=== PATIENT | male | born 1955 | race Hispanic/Latino ===

== ENCOUNTER 2019-01-18 17:04 | Inpatient (IN) | payer MEDICAID ==
[~2019-01-18] VITALS: Ht 177.8 cm; Wt 113.5 kg
[2019-01-18] MEDS ORDERED: METOPROLOL TARTRATE 1 MG/ML 5ML VIAL IV ONE (18:19)
[2019-01-18 18:32] LABS: BASOPHILS % (AUTO) 1.4 % (0.0-5.0); EOSINOPHILS % (AUTO) 4.4 % (0.0-8.0); HEMATOCRIT 40.7 % (42-54); LYMPHOCYTES % (AUTO) 28.6 % (21.0-51.0); MEAN CORPUSCULAR HEMOGLOBIN 33.8 pg (27.0-33.0); MEAN CORPUSCULAR HGB CONC 33.8 g/dL (32.0-36.0); MEAN CORPUSCULAR VOLUME 99.8 fL (79-99); MONOCYTES % (AUTO) 12.7 % (3.0-13.0); NEUTROPHILS % (AUTO) 52.9 % (40.0-77.0); PLATELET COUNT (AUTO) 218 K/uL (130-400); RED BLOOD CELL COUNT(AUTO) 4.08 MIL/uL (4.50-6.20); RED CELL DISTRIBUTION WIDTH 15.3 % (11.0-15.5)
[2019-01-18 18:39] LABS: APPEARANCE,URINE Clear (CLEAR); BILIRUBIN,URINE Negative (NEGATIVE); COLOR,URINE Dark Yellow (YELLOW); GLUCOSE, URINE (UA) Negative (NEGATIVE); KETONES,URINE Negative (NEGATIVE); LEUKOCYTE ESTERASE ,URINE Trace (NEGATIVE); NITRATE,URINE Negative (NEGATIVE); OCCULT BLOOD,URINE Negative (NEGATIVE); PH,URINE 5.5 (5.0-8.0); PROTEIN,URINE POS 1+ mg/dL (NEGATIVE)
[2019-01-18 18:45] LABS: POTASSIUM 3.2 mmol/L (3.5-5.1)
[2019-01-18 18:46] LABS: INR 0.98 (0.85-1.15); PARTIAL THROMBOPLASTIN TIME 35.4 SEC (26.3-35.5); PROTHROMBIN TIME 10.3 SEC (9.6-11.6)
[2019-01-18 18:49] LABS: ALBUMIN 3.3 g/dL (3.5-5.0); BILIRUBIN,TOTAL 1.3 mg/dL (0.2-1.0); TOTAL PROTEIN, SERUM 6.7 g/dL (6.0-8.3)
[2019-01-18 18:53] LABS: BACTERIA,URINE Rare /HPF (None Seen); RBC,URINE None Seen /HPF (0-1); SQUAMOUS EPITHELIAL CELL,UR 0-2 /HPF (0-2); WBC,URINE 0-1 /HPF (0-1)
[2019-01-18] MEDS ORDERED: ASPIRIN 325 MG TABLET ONE (20:03)
[2019-01-18] MEDS ORDERED: NITROGLYCERIN 1GM/1 INCH PACKET TD ONE (20:03)
[2019-01-18] MEDS ORDERED: POTASSIUM CHLORIDE 20MEQ/100ML 100 ML IV PRN (22:00)
[2019-01-18] MEDS ORDERED: MAGNESIUM 2GM PREMIX 50ML 50 ML IV PRN (22:00)
[2019-01-18] MEDS ORDERED: POTASSIUM CHLORIDE 10% ELIXIR 20 MEQ/15 ML UDCUP PO PRN (22:00)
[2019-01-18] MEDS ORDERED: NITROGLYCERIN 0.4 MG SL TAB SL PRN (22:00)
[2019-01-18] MEDS ORDERED: ACETAMINOPHEN 325 MG TAB PO PRN (22:00)
[2019-01-18] MEDS: SODIUM CHLORIDE 0.9% 1000ML 1,000 ML IV SCH (22:00)
[2019-01-18] MEDS ORDERED: HYDROCODONE/ACETAMINOPHEN 5/325 MG TAB PO PRN (22:00)
[2019-01-18] MEDS ORDERED: LIDOCAINE HCL-MPF 1% 2ML VIAL IVP PRN (22:00)
[2019-01-18] MEDS ORDERED: ONDANSETRON HCL 4 MG/2 ML VIAL IV PRN (22:00)
[2019-01-19] MEDS ORDERED: POTASSIUM CHLORIDE 20 MEQ ERTAB PO ONE (00:07)
[2019-01-19] MEDS ORDERED: HYDROCODONE/ACETAMINOPHEN 5/325 MG TAB ONE (00:08)
[2019-01-19 02:32] VITALS: BP 161/109
[2019-01-19 02:52] LABS: TROPONIN I 0.75 ng/mL (0.00-0.06)
[2019-01-19] MEDS ORDERED: SODIUM CHLORIDE 0.9% 1000ML 1,000 ML IV ONE (02:54)
[2019-01-19 05:52] LABS: BASOPHILS % (AUTO) 1.5 % (0.0-5.0); EOSINOPHILS % (AUTO) 4.9 % (0.0-8.0); HEMATOCRIT 36.7 % (42-54); LYMPHOCYTES % (AUTO) 39.5 % (21.0-51.0); MEAN CORPUSCULAR HEMOGLOBIN 34.4 pg (27.0-33.0); MEAN CORPUSCULAR HGB CONC 34.4 g/dL (32.0-36.0); MEAN CORPUSCULAR VOLUME 99.9 fL (79-99); MONOCYTES % (AUTO) 13.9 % (3.0-13.0); NEUTROPHILS % (AUTO) 40.2 % (40.0-77.0); NUCLEATED RED BLOOD CELLS 0.1 % (0.0-0.19); PLATELET COUNT (AUTO) 194 K/uL (130-400); RED BLOOD CELL COUNT(AUTO) 3.67 MIL/uL (4.50-6.20); RED CELL DISTRIBUTION WIDTH 15.2 % (11.0-15.5); WHITE BLOOD COUNT (AUTO) 8.3 K/uL (4.8-10.8)
[2019-01-19 06:21] LABS: BILIRUBIN,TOTAL 1.6 mg/dL (0.2-1.0); CREATININE 0.9 mg/dL (0.5-1.5); MAGNESIUM 1.8 mg/dL (1.80-2.40); POTASSIUM 3.6 mmol/L (3.5-5.1); TOTAL PROTEIN, SERUM 6.2 g/dL (6.0-8.3)
[2019-01-19 06:24] LABS: TROPONIN I 0.72 ng/mL (0.00-0.06)
[2019-01-19 08:00] VITALS: BP 159/105
[2019-01-19] MEDS: ENOXAPARIN SODIUM 30 MG/0.3 ML SQ SCH (08:16)
[2019-01-19] MEDS: FAMOTIDINE 20MG TAB 20 MG TAB PO SCH ×2 (09:00→20:04)
[2019-01-19] MEDS ORDERED: ONDANSETRON HCL MDV 20ML 2 MG/ML VIAL IVP PRN (09:15)
[2019-01-19] MEDS ORDERED: HYDRALAZINE HCL 20 MG/ML VIAL IV PRN (09:15)
[2019-01-19] MEDS: SODIUM CHLORIDE 0.9% 1000ML 1,000 ML IV SCH ×2 (09:23→23:57)
[2019-01-19] MEDS: MORPHINE SULFATE 2 MG/ML 1ML SYG IVP PRN ×2 (09:26→20:13)
[2019-01-19] MEDS ORDERED: APIX2.5T PO (09:30)
[2019-01-19] MEDS ORDERED: TAMS-1 PO (09:30)
[2019-01-19] MEDS: CEFAZOLIN SODIUM 1 GM VIAL IVP SCH (10:15)
[2019-01-19] MEDS ORDERED: ATOR10 PO (10:40)
[2019-01-19] MEDS ORDERED: LISI1TAB11 PO (10:40)
[2019-01-19] MEDS ORDERED: CARV6.2579 PO (10:40)
[2019-01-19 11:00] VITALS: BP 175/94
[2019-01-19] MEDS ORDERED: CARVEDILOL 6.25 MG TABLET PO ONE (13:13)
--- NOTE | 2019-01-19 13:49 | NUR ---
HX DRUG USE Pt is under PD custody. Police office at bedside. Pt return to PD custody at nm
--- NOTE | 2019-01-19 14:13 | NUR ---
DR. CASILLAS RETURNED CALL AND NOTIFIED HIM OF CONSULT FOR SURGICAL CARDIAC CLEARANCE NEEDED. 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 INFORMED HIM WE WERE INFORMED BY HIS OFFICE IN A.M. THE SAME HOWEVER, WHEN WE CALLED BACK FOR [employer]AGE [employer] EQUIPMENT MECHANIC , OFFICE THEN SAID DR. 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 DR. CASILLAS SAID OK HE WOULD COME TO SEE BECAUSE IT WAS HIS PATIENT. WILL CONTINUE TO MONITOR.
[2019-01-19 16:00] VITALS: BP 153/93
[2019-01-19] MEDS: ACETAMINOPHEN 325 MG TAB PO PRN ×2 (16:16→22:15)
[2019-01-19 19:50] VITALS: BP 168/94
[2019-01-19] MEDS: HYDRALAZINE HCL 20 MG/ML VIAL IV PRN (20:04)
--- NOTE | 2019-01-19 20:10 | NUR ---
CALLED DR. CASILLAS AND HE SAID HE HADNT MADE IT HERE YET BUT WOULD COME. HE ASKED FOR PATIENT'S ROOM NUMBER AND INFORMED HIM WITH RM NUMBER.
[2019-01-19 23:25] VITALS: BP 158/95
[2019-01-20] VITALS (23 sets, daily range): BP systolic 124–188; BP diastolic 74–119
[2019-01-20] MEDS ORDERED: METOPROLOL TARTRATE 25 MG TAB ONE (04:04)
--- NOTE | 2019-01-20 04:06 | NUR ---
HEART RATE PATIENT WITH HEART RATE IN THE 150'S A-FIB. Ana MONTOYA NOTIFIED ORDER FOR METOPROLOL 25 MG PO GIVEN AND CARRIED OUT. WILL MONITOR PATIENT.
[2019-01-20 05:05] LABS: BASOPHILS % (AUTO) 1.2 % (0.0-5.0); EOSINOPHILS % (AUTO) 2.2 % (0.0-8.0); LYMPHOCYTES % (AUTO) 25.4 % (21.0-51.0); MEAN CORPUSCULAR HEMOGLOBIN 33.5 pg (27.0-33.0); MEAN CORPUSCULAR HGB CONC 33.6 g/dL (32.0-36.0); MEAN CORPUSCULAR VOLUME 99.9 fL (79-99); MONOCYTES % (AUTO) 11.3 % (3.0-13.0); NEUTROPHILS % (AUTO) 59.9 % (40.0-77.0); PLATELET COUNT (AUTO) 236 K/uL (130-400); RED CELL DISTRIBUTION WIDTH 15.1 % (11.0-15.5)
[2019-01-20 05:28] LABS: CREATININE 0.9 mg/dL (0.5-1.5); POTASSIUM 3.3 mmol/L (3.5-5.1)
[2019-01-20 05:39] LABS: B-TYPE NATRIURETIC PEPTIDE 582 pg/mL (0-100)
[2019-01-20] MEDS: MORPHINE SULFATE 2 MG/ML 1ML SYG IVP PRN ×2 (06:58→19:31)
[2019-01-20] MEDS: METOPROLOL TARTRATE 25 MG TAB PO SCH (07:15)
[2019-01-20] MEDS: HYDROCHLOROTHIAZIDE 25 MG TABLET PO SCH ×2 (09:00→19:04)
[2019-01-20] MEDS: CARVEDILOL 6.25 MG TABLET PO SCH (09:00)
[2019-01-20] MEDS: FAMOTIDINE 20MG TAB 20 MG TAB PO SCH ×2 (09:00→19:04)
[2019-01-20] MEDS: LISINOPRIL 20 MG TABLET PO SCH ×2 (09:00→19:04)
[2019-01-20] MEDS: ENOXAPARIN SODIUM 30 MG/0.3 ML SQ SCH (09:00)
[2019-01-20] MEDS: SODIUM CHLORIDE 0.9% 1000ML 1,000 ML IV SCH (10:01)
[2019-01-20] MEDS: CEFAZOLIN SODIUM 1 GM VIAL IVP SCH (10:15)
[2019-01-20] MEDS ORDERED: LACTATED RINGERS 1000ML 1,000 ML IV ONE (11:59)
[2019-01-20] MEDS ORDERED: LIDOCAINE HCL 2% 20ML ONE (12:15)
[2019-01-20] MEDS ORDERED: ROPIVACAINE 0.5% 5MG/ML 30ML IJ ONE (12:15)
[2019-01-20] MEDS ORDERED: MIDAZOLAM HCL 1 MG/ML 2ML VIAL ONE (12:38)
[2019-01-20] MEDS ORDERED: PROPOFOL 10 MG/ML 20ML VIAL IV ONE (12:43)
[2019-01-20] MEDS ORDERED: LABETALOL HCL 5 MG/ML 20ML VIAL IV ONE (12:55)
--- NOTE | 2019-01-20 14:01 | NUR ---
PEDRO LUIS PLAN VISITED WITH PATIENT. S/P SURGERY IN PAIN. NOT ABLE TO ANSWER QUESTIONS AT THIS TIME. ITZ WILL CONTINUE TO FOLLOW. Addendum: 01/20/19 at 1403 by FILI ROBERTO RN CM Amended: Links added.
[2019-01-20] MEDS: HYDROCODONE/ACETAMINOPHEN 5/325 MG TAB PO PRN (15:18)
[2019-01-20] MEDS: POTASSIUM CHLORIDE 20 MEQ ERTAB PO PRN ×3 (15:18→19:04)
--- NOTE | 2019-01-20 16:20 | NUR ---
RD Notification - Trigger Patient s/p surgery. Patient NPO status at time of screen. Diet advanced to Heart Healthy diet. RD to continue to monitor. LBM 01/18/19. Patient monitored labs: K3.3, Glu 120, Alb 3.0, Trop 0.72. RD to continue to monitor. Please notify RD as nutritional concerns arise. Thank you. Addendum: 01/20/19 at 1622 by [address] JAVIER CANO RD RD Amended: Links added.
[2019-01-20] MEDS: HYDRALAZINE HCL 20 MG/ML VIAL IV PRN (19:14)
[2019-01-21] MEDS: MORPHINE SULFATE 2 MG/ML 1ML SYG IVP PRN (01:25)
[2019-01-21] MEDS: SODIUM CHLORIDE 0.9% 1000ML 1,000 ML IV SCH (03:20)
[2019-01-21 04:00] VITALS: BP 165/97
[2019-01-21 04:26] LABS: BASOPHILS % (AUTO) 1.3 % (0.0-5.0); EOSINOPHILS % (AUTO) 2.9 % (0.0-8.0); LYMPHOCYTES % (AUTO) 30.4 % (21.0-51.0); MEAN CORPUSCULAR HEMOGLOBIN 34.6 pg (27.0-33.0); MEAN CORPUSCULAR HGB CONC 34.9 g/dL (32.0-36.0); MEAN CORPUSCULAR VOLUME 99.2 fL (79-99); MONOCYTES % (AUTO) 13.2 % (3.0-13.0); NEUTROPHILS % (AUTO) 52.2 % (40.0-77.0); PLATELET COUNT (AUTO) 209 K/uL (130-400); RED BLOOD CELL COUNT(AUTO) 4.33 MIL/uL (4.50-6.20); WHITE BLOOD COUNT (AUTO) 8.4 K/uL (4.8-10.8)
[2019-01-21 04:47] LABS: CREATININE 0.8 mg/dL (0.5-1.5); POTASSIUM 3.5 mmol/L (3.5-5.1)
[2019-01-21] MEDS ORDERED: TYL3 PO (06:52)
[2019-01-21] MEDS: METOPROLOL TARTRATE 25 MG TAB PO SCH (07:15)
[2019-01-21 07:30] VITALS: BP 168/93
[2019-01-21] MEDS: CEFAZOLIN SODIUM 1 GM VIAL IVP SCH (08:39)
[2019-01-21] MEDS: HYDROCHLOROTHIAZIDE 25 MG TABLET PO SCH (08:46)
[2019-01-21] MEDS: LISINOPRIL 20 MG TABLET PO SCH (08:46)
[2019-01-21] MEDS: CARVEDILOL 6.25 MG TABLET PO SCH (08:46)
[2019-01-21] MEDS: FAMOTIDINE 20MG TAB 20 MG TAB PO SCH (08:47)
[2019-01-21] MEDS: ENOXAPARIN SODIUM 30 MG/0.3 ML SQ SCH (08:47)
[2019-01-21 11:00] VITALS: BP 144/86
[2019-01-21] MEDS ORDERED: CARVEDILOL 6.25 MG TABLET PO SCH (12:15)
--- NOTE | 2019-01-21 12:20 | NUR ---
Pt has discharge orders in place if okay with ortho and cardiology, however, pt has maintained heart rate in 110-120 bpm range, occasionally up to 150's during activity. Current BP 141/86. Reported heart rate to Dr. Montez. [place]'d orders to increase coreg to 12.5 mg po bid, give extra dose of 6.25 mg now to equal 12.5mg for this morning, then continue to monitor. Pt may be discharged if no further problems. Orders entered and honored.
[2019-01-21 12:27] VITALS: BP 144/86
[2019-01-21] MEDS ORDERED: CARV12.580 PO (12:29)
[2019-01-21] MEDS: HYDROCODONE/ACETAMINOPHEN 5/325 MG TAB PO PRN (12:45)
--- NOTE | 2019-01-21 12:51 | NUR ---
DC PLAN VISITED WITH PATIENT. PATIENT LIVES WITH SON. INDEPENDENT ABLE TO PERFORM ADL'S. PATIENT HAS NO SERVICES OR DME'S. FEELS SAFE TO RETURN HOME. Addendum: 01/21/19 at 1253 by FILI ROBERTO RN CM Amended: Links added.
--- NOTE | 2019-01-21 16:00 | NUR ---
Heart rate has been high 90's low 110's since administration of extra dose of coreg. Will discharge as ordered.
--- NOTE | 2019-01-21 16:30 | NUR ---
Rec'd call [facility] Lieutenant Stapleton [facility] [place]. He stated that although pt is currently under their custody, he is being denied by the [facility] due to dx and must be released back to his home. Pt is to follow up with his adult probation officer for further instructions after discharge. Relayed this information to pt and son.
--- NOTE | 2019-01-21 16:50 | NUR ---
Discharge teaching completed in the room with pt. Emphasis on dx, s/s to monitor for, and when to seek emergency care / call 911. Emphasis on Dr. Craft's orders for activity (NWB RUE, use sling during day), cast care (inspect skin around cast daily; keep cast clean, dry, and intact; do not submerge; do not use objects to scratch beneath, etc.), and follow up care. Pt has appts set with Dr. Craft on 02/[address] Montez on 02/09. Encouraged pt to keep all apts. Written rx for coreg 12.5 bid and tylenol 3 q 12 hours prn given to pt. Discussed purpose, route, frequency, and duration of treatment, as well as side effects and adverse effects. PIV removed, tip intact. Dressed with sterile 2x2 and band aid after hemostasis. Pt wheel[facility] to [facility] by [facility] staff for transport home via private car. Accompanied by son. Pt in stable condition at time of discharge.
[2019-01-21] MEDS ORDERED: CARVEDILOL 12.5 MG TABLET PO SCH (21:00)
== END 2019-01-21 16:52 | DRG 342 ==
LOC: EEVIPCON 17:04 → EDH 17:04 → EDHIP 17:05 → 4AH 01-19 01:04
PROVIDERS: ADMIT Internal Medicine; ATTEND Internal Medicine
PROC: 0PSHXZZ Reposition Right Radius, External Approach (ICD-10-PCS; principal; 2019-01-20 12:32)
DX: S52.551A Other extraarticular fracture of lower end of right radius, initial encounter for closed fracture (principal); I48.2 Chronic atrial fibrillation; W18.30XA Fall on same level, unspecified, initial encounter; E87.6 Hypokalemia; R74.8 Abnormal levels of other serum enzymes; F17.210 Nicotine dependence, cigarettes, uncomplicated; E78.00 Pure hypercholesterolemia, unspecified; E78.5 Hyperlipidemia, unspecified; I10 Essential (primary) hypertension; F14.10 Cocaine abuse, uncomplicated; I25.10 Atherosclerotic heart disease of native coronary artery without angina pectoris; E66.9 Obesity, unspecified; Z68.35 Body mass index [BMI] 35.0-35.9, adult; Z82.49 Family history of ischemic heart disease and other diseases of the circulatory system; Z82.3 Family history of stroke; Y92.009 Unspecified place in unspecified non-institutional (private) residence as the place of occurrence of the external cause; Z83.3 Family history of diabetes mellitus; Y93.89 Activity, other specified; Y99.8 Other external cause status
CPT/HCPCS: 36415; 71045; 72100; 73110; 80048; 80053; 81001; 82550; 83735; 83874; 83880; 84484; 85025; 85610; 85730; 93005; 93306; A4218; G0378; J0360; J0690; J1650; J2250; J2704; J2795; J3490; J7030; J7120

== ENCOUNTER 2019-02-18 08:27 | Emergency (ER) | payer MEDICAID ==
[~2019-02-18 08:27] MED LIST: APIX2.5T PO; ATOR10 PO; CARV12.580 PO; LISI1TAB11 PO; TAMS-1 PO; TYL3 PO
[2019-02-18] MEDS ORDERED: METOPROLOL TARTRATE 1 MG/ML 5ML VIAL IV ONE ×2 (09:44→11:27)
[2019-02-18 09:48] LABS: BASOPHILS % (AUTO) 1.2 % (0.0-5.0); EOSINOPHILS % (AUTO) 2.1 % (0.0-8.0); HEMATOCRIT 47.3 % (42-54); LYMPHOCYTES % (AUTO) 22.2 % (21.0-51.0); MEAN CORPUSCULAR HEMOGLOBIN 33.3 pg (27.0-33.0); MEAN CORPUSCULAR HGB CONC 33.5 g/dL (32.0-36.0); MEAN CORPUSCULAR VOLUME 99.6 fL (79-99); MONOCYTES % (AUTO) 9.3 % (3.0-13.0); NEUTROPHILS % (AUTO) 65.2 % (40.0-77.0); NUCLEATED RED BLOOD CELLS 0.1 % (0.0-0.19); PLATELET COUNT (AUTO) 196 K/uL (130-400); RED BLOOD CELL COUNT(AUTO) 4.75 MIL/uL (4.50-6.20); RED CELL DISTRIBUTION WIDTH 14.9 % (11.0-15.5); WHITE BLOOD COUNT (AUTO) 8.5 K/uL (4.8-10.8)
[2019-02-18 09:56] LABS: CREATININE 1.1 mg/dL (0.5-1.5); POTASSIUM 3.2 mmol/L (3.5-5.1)
[2019-02-18 10:00] LABS: ALBUMIN 3.4 g/dL (3.5-5.0); BILIRUBIN,TOTAL 1.4 mg/dL (0.2-1.0); TOTAL PROTEIN, SERUM 7.1 g/dL (6.0-8.3)
[2019-02-18] MEDS ORDERED: POTASSIUM CHLORIDE 20 MEQ ERTAB PO ONE (11:26)
== END 2019-02-18 12:20 | disposition home or self-care (01) ==
LOC: EDH 08:27
DX: I48.91 Unspecified atrial fibrillation (principal); K43.9 Ventral hernia without obstruction or gangrene; I10 Essential (primary) hypertension; Z72.0 Tobacco use
CPT/HCPCS: 36415; 80053; 83735; 85025; 93005; 96374; 96376; 99285; J3490 ×2

== ENCOUNTER 2021-05-14 08:50 | Inpatient (IN) | payer MEDICARE ==
[~2021-05-14] VITALS: Ht 177.8 cm; Wt 113.7 kg
[~2021-05-14 08:50] MED LIST changes: +ASPI-891 PO; +DOXY100T2 PO; +FURO20TA4 PO; -LISI1TAB11 PO; +LISI1TAB51 PO
[2021-05-14 10:41] LABS: BASOPHILS % (AUTO) 0.3 % (0.0-5.0); LYMPHOCYTES % (AUTO) 18.7 % (21.0-51.0); MEAN CORPUSCULAR HEMOGLOBIN 32.4 pg (27.0-33.0); MEAN CORPUSCULAR HGB CONC 34.4 g/dL (32.0-36.0); MEAN CORPUSCULAR VOLUME 94.4 fL (79-99); MONOCYTES % (AUTO) 6.1 % (3.0-13.0); NEUTROPHILS % (AUTO) 70.3 % (40.0-77.0); NUCLEATED RED BLOOD CELLS 0.3 % (0.0-0.19); PLATELET COUNT (AUTO) 276 K/uL (130-400); RED BLOOD CELL COUNT(AUTO) 4.13 MIL/uL (4.50-6.20); RED CELL DISTRIBUTION WIDTH 15.3 % (11.0-15.5); WHITE BLOOD COUNT (AUTO) 11.6 K/uL (4.8-10.8)
[2021-05-14 10:53] LABS: POTASSIUM 3.2 mmol/L (3.5-5.1)
[2021-05-14 10:54] LABS: INR 1.06 (0.85-1.15); PROTHROMBIN TIME 11.5 SEC (9.6-11.6)
[2021-05-14 10:57] LABS: ALBUMIN 2.7 g/dL (3.5-5.0); BILIRUBIN,TOTAL 1.2 mg/dL (0.2-1.0)
[2021-05-14 10:59] LABS: APPEARANCE,URINE Clear (CLEAR); BILIRUBIN,URINE Negative (NEGATIVE); COLOR,URINE Yellow (YELLOW); GLUCOSE, URINE (UA) Negative (NEGATIVE); KETONES,URINE Negative (NEGATIVE); LEUKOCYTE ESTERASE ,URINE Small (NEGATIVE); NITRATE,URINE Negative (NEGATIVE); OCCULT BLOOD,URINE Negative (NEGATIVE); PH,URINE 7.5 (5.0-8.0); PROTEIN,URINE Negative (NEGATIVE)
[2021-05-14 11:06] LABS: BACTERIA,URINE Rare /HPF (None Seen); RBC,URINE 0-1 /HPF (0-1); SQUAMOUS EPITHELIAL CELL,UR Rare /HPF (0-2)
[2021-05-14 11:08] LABS: B-TYPE NATRIURETIC PEPTIDE 368 pg/mL (0-100)
[2021-05-14 12:31] VITALS: BP 144/84
[2021-05-14 16:45] VITALS: BP 148/84
[2021-05-14] MEDS ORDERED: AZITHROMYCIN 500MG VIAL IVPB ONE (17:30)
[2021-05-14] MEDS ORDERED: 0.9% NACL 250ML IVPB ONE (17:30)
[2021-05-14] MEDS: CEFTRIAXONE 1G VIAL IVP SCH ×2 (17:58→18:08)
[2021-05-14] MEDS ORDERED: 0.9% NACL 250ML 250 ML IV SCH (18:00)
[2021-05-14] MEDS ORDERED: AZITHROMYCIN 500MG+NS 250ML IV SCH (18:00)
[2021-05-14 18:19] LABS: ABG BASE EXCESS 4.2 mmol/L (-2.0-3.0); ABG HCO3 26.5 mmol/L (21.0-28.0); ABG PCO2 33 mmHg (35-48)
[2021-05-14 20:00] VITALS: BP 118/73
[2021-05-14] MEDS ORDERED: ACETAMINOPHEN 650 MG SUPPOSITORY RC PRN (20:30)
[2021-05-14] MEDS ORDERED: TEMAZEPAM 15 MG CAPSULE PO PRN (20:30)
[2021-05-14] MEDS ORDERED: CLONIDINE HCL 0.1 MG TABLET PO PRN ×2 (20:30)
[2021-05-14] MEDS ORDERED: LIDOCAINE HCL-MPF 1% 2ML VIAL IV PRN ×2 (20:30)
[2021-05-14] MEDS ORDERED: ACETAMINOPHEN 325 MG TAB PO PRN (20:30)
[2021-05-14] MEDS ORDERED: GLUCAGON 1MG KIT 1 MG ML IM PRN (20:30)
[2021-05-14] MEDS ORDERED: ONDANSETRON 4MG INJ IVP PRN (20:30)
[2021-05-14] MEDS ORDERED: POTASSIUM CHLORIDE 20MEQ/100ML 100 ML IV PRN ×2 (20:30)
[2021-05-14] MEDS ORDERED: DEXTROSE 50%-WATER 50 ML DISP.SYRIN IV PRN (20:30)
[2021-05-14] MEDS ORDERED: POTASSIUM CHLORIDE 10% ELIXIR 20 MEQ/15 ML UDCUP PO PRN (20:30)
[2021-05-14] MEDS ORDERED: [UNRECOGNIZED DRUG - REMARK] MISC STA (20:42)
[2021-05-14] MEDS ORDERED: IOHEXOL 350 MG/ML 100ML INFUS..BTL IV ONE (20:50)
[2021-05-14] MEDS ORDERED: SOLU-MEDROL 125MG VIAL IVP ONE (21:00)
[2021-05-14] MEDS: INSULIN HUMULIN R 100 UNIT/ML 3ML SQ SCH ×2 (21:00)
[2021-05-14 21:23] LABS: TROPONIN I 0.15 ng/mL (0.00-0.06)
[2021-05-14] MEDS: ZOSYN 3.375GM +NS 50ML IV SCH (21:58)
[2021-05-15] VITALS (7 sets, daily range): BP systolic 104–131; BP diastolic 56–90
[2021-05-15 00:01] LABS: AMPHET/METH SCREEN,URINE NEGATIVE (NEGATIVE); BARBITURATE SCREEN, URINE NEGATIVE (NEGATIVE); BENZODIAZEPINES SCREEN,URINE NEGATIVE (NEGATIVE); CANNABINOID SCREEN,URINE NEGATIVE (NEGATIVE); COCAINE SCREEN,URINE POSITIVE (NEGATIVE); OPIATE SCREEN,URINE NEGATIVE (NEGATIVE); PHENCYCLIDINE SCREEN,URINE NEGATIVE (NEGATIVE)
[2021-05-15] MEDS: ACETYLCYSTEINE 20% 200MG/ML 4ML VIAL NEB SCH ×4 (00:28→18:54)
[2021-05-15] MEDS: IPRATROPIUM/ALBUTEROL SULFATE 3 ML SOLUTION IH SCH ×4 (00:28→18:53)
[2021-05-15] MEDS: ZOSYN 3.375GM +NS 50ML IV SCH ×3 (04:30→21:59)
[2021-05-15 06:42] LABS: BASOPHILS % (AUTO) 0.1 % (0.0-5.0); HEMATOCRIT 39.2 % (42-54); LYMPHOCYTES % (AUTO) 10.5 % (21.0-51.0); MEAN CORPUSCULAR HEMOGLOBIN 32.3 pg (27.0-33.0); MEAN CORPUSCULAR HGB CONC 33.9 g/dL (32.0-36.0); MEAN CORPUSCULAR VOLUME 95.1 fL (79-99); MONOCYTES % (AUTO) 1.2 % (3.0-13.0); NEUTROPHILS % (AUTO) 87.7 % (40.0-77.0); PLATELET COUNT (AUTO) 287 K/uL (130-400); RED BLOOD CELL COUNT(AUTO) 4.12 MIL/uL (4.50-6.20); WHITE BLOOD COUNT (AUTO) 7.3 K/uL (4.8-10.8)
[2021-05-15 06:46] LABS: HEMOGLOBIN A1C 6.3 % (4.0-6.0)
[2021-05-15 06:53] LABS: INR 1.05 (0.85-1.15); PROTHROMBIN TIME 11.4 SEC (9.6-11.6)
[2021-05-15 07:13] LABS: B-TYPE NATRIURETIC PEPTIDE 307 pg/mL (0-100)
[2021-05-15] MEDS: INSULIN HUMULIN R 100 UNIT/ML 3ML SQ SCH ×7 (07:30→21:00)
[2021-05-15 07:46] LABS: CREATININE 1.1 mg/dL (0.5-1.5); MAGNESIUM 1.8 mg/dL (1.80-2.40); PHOSPHORUS 4.5 mg/dL (2.5-4.9); POTASSIUM 3.7 mmol/L (3.5-5.1); THYROID STIMULATING HORMONE 0.45 uIU/mL (0.36-3.74)
[2021-05-15] MEDS: FUROSEMIDE 40MG VIAL IV SCH (08:30)
[2021-05-15] MEDS: POLYETHYLENE GLYCOL 3350 17 GM POWD.PACK PO SCH (09:00)
[2021-05-15] MEDS: ASPIRIN 81MG CHEW TAB PO SCH (10:32)
[2021-05-15] MEDS: PANTOPRAZOLE 40 MG TAB DR PO SCH (10:32)
[2021-05-15] MEDS: SOLU-MEDROL 125MG VIAL IVP SCH ×2 (10:32→18:46)
[2021-05-15] MEDS: LEVOFLOXACIN 500 MG/D5W 100 ML IV SCH (10:32)
[2021-05-15] MEDS: ENOXAPARIN SODIUM 30 MG/0.3 ML SQ SCH (10:34)
[2021-05-15] MEDS: MORPHINE 2 MG SYG IVP PRN (10:45)
[2021-05-15] MEDS ORDERED: 0.9%NACL 50ML 50 ML IV ONE (12:49)
[2021-05-15] MEDS: FUROSEMIDE 20MG VIAL IV SCH ×2 (14:22→21:59)
[2021-05-16] VITALS (7 sets, daily range): BP systolic 110–146; BP diastolic 63–84
[2021-05-16] MEDS: ACETYLCYSTEINE 20% 200MG/ML 4ML VIAL NEB SCH ×3 (00:35→11:23)
[2021-05-16] MEDS: IPRATROPIUM/ALBUTEROL SULFATE 3 ML SOLUTION IH SCH ×4 (00:35→18:39)
[2021-05-16] MEDS: SOLU-MEDROL 125MG VIAL IVP SCH ×2 (01:33→09:39)
[2021-05-16 03:55] LABS: HEMATOCRIT 36.5 % (42-54); MEAN CORPUSCULAR HEMOGLOBIN 31.5 pg (27.0-33.0); MEAN CORPUSCULAR HGB CONC 33.4 g/dL (32.0-36.0); MEAN CORPUSCULAR VOLUME 94.3 fL (79-99); NUCLEATED RED BLOOD CELLS 0.1 % (0.0-0.19); RED BLOOD CELL COUNT(AUTO) 3.87 MIL/uL (4.50-6.20); WHITE BLOOD COUNT (AUTO) 18.8 K/uL (4.8-10.8)
[2021-05-16 04:02] LABS: CREATININE 1.7 mg/dL (0.5-1.5); MAGNESIUM 1.9 mg/dL (1.80-2.40); POTASSIUM 3.4 mmol/L (3.5-5.1)
[2021-05-16] MEDS: ZOSYN 3.375GM +NS 50ML IV SCH ×3 (06:18→23:07)
[2021-05-16] MEDS: FUROSEMIDE 20MG VIAL IV SCH (06:18)
[2021-05-16] MEDS: INSULIN HUMULIN R 100 UNIT/ML 3ML SQ SCH ×4 (06:20→21:11)
[2021-05-16] MEDS: PANTOPRAZOLE 40 MG TAB DR PO SCH (09:38)
[2021-05-16] MEDS: LEVOFLOXACIN 500 MG/D5W 100 ML IV SCH (09:38)
[2021-05-16] MEDS: ASPIRIN 81MG CHEW TAB PO SCH (09:38)
[2021-05-16] MEDS: ENOXAPARIN SODIUM 30 MG/0.3 ML SQ SCH (09:39)
[2021-05-16] MEDS: POLYETHYLENE GLYCOL 3350 17 GM POWD.PACK PO SCH (09:39)
[2021-05-16] MEDS: FUROSEMIDE 40MG VIAL IV SCH (09:41)
[2021-05-16] MEDS: KCL 20 MEQ ERTAB PO PRN ×3 (09:42→21:09)
[2021-05-16] MEDS ORDERED: SOLU-MEDROL 125MG VIAL IVP SCH (17:00)
[2021-05-16] MEDS ORDERED: ACETYLCYSTEINE 20% 200MG/ML 4ML VIAL ONE (18:30)
[2021-05-16] MEDS ORDERED: MAGNESIUM 2GM PREMIX 50ML 50 ML IV SCH (20:30)
[2021-05-16] MEDS: MORPHINE 2 MG SYG IVP PRN (23:23)
[2021-05-17] MEDS: IPRATROPIUM/ALBUTEROL SULFATE 3 ML SOLUTION IH SCH ×4 (00:27→19:00)
[2021-05-17] MEDS ORDERED: CARV3.12 PO (00:54)
[2021-05-17] MEDS ORDERED: ATOR40TA71 PO (00:54)
[2021-05-17] MEDS ORDERED: HYDR25TA PO (00:54)
[2021-05-17] MEDS ORDERED: TAMS-1 PO (00:54)
[2021-05-17] MEDS ORDERED: METF-446 PO (00:54)
[2021-05-17] MEDS ORDERED: AMIO200T6 PO (00:54)
[2021-05-17] MEDS ORDERED: AMLO-258 PO (00:54)
[2021-05-17] MEDS ORDERED: POTA-79 PO (00:54)
[2021-05-17] MEDS ORDERED: LISI20TA24 PO (00:54)
[2021-05-17 03:00] VITALS: BP 123/73
[2021-05-17 03:50] LABS: HEMATOCRIT 37.6 % (42-54); MEAN CORPUSCULAR HEMOGLOBIN 32.8 pg (27.0-33.0); MEAN CORPUSCULAR HGB CONC 33.8 g/dL (32.0-36.0); MEAN CORPUSCULAR VOLUME 97.2 fL (79-99); RED BLOOD CELL COUNT(AUTO) 3.87 MIL/uL (4.50-6.20); RED CELL DISTRIBUTION WIDTH 15.3 % (11.0-15.5); WHITE BLOOD COUNT (AUTO) 20.2 K/uL (4.8-10.8)
[2021-05-17 03:58] LABS: CREATININE 1.4 mg/dL (0.5-1.5); POTASSIUM 4.6 mmol/L (3.5-5.1)
[2021-05-17] MEDS: ZOSYN 3.375GM +NS 50ML IV SCH ×3 (05:58→21:03)
[2021-05-17] MEDS: INSULIN HUMULIN R 100 UNIT/ML 3ML SQ SCH ×4 (05:59→21:00)
[2021-05-17 07:30] VITALS: BP 149/86
[2021-05-17] MEDS ORDERED: DOXY100C5 PO (08:21)
[2021-05-17] MEDS ORDERED: PRED20TA3 PO (08:23)
[2021-05-17] MEDS: ENOXAPARIN SODIUM 30 MG/0.3 ML SQ SCH (09:00)
[2021-05-17] MEDS: AMLODIPINE 5 MG TAB PO SCH (10:03)
[2021-05-17] MEDS: CARVEDILOL 3.125 MG TABLET PO SCH ×2 (10:03→21:02)
[2021-05-17] MEDS: AMIODARONE 200 MG TABLET PO SCH ×2 (10:03→21:02)
[2021-05-17] MEDS: TAMSULOSIN HCL 0.4 MG CAP.ER.24H PO SCH ×2 (10:04→21:01)
[2021-05-17] MEDS: APIXABAN 2.5 MG TABLET PO SCH ×2 (10:04→21:01)
[2021-05-17] MEDS: PANTOPRAZOLE 40 MG TAB DR PO SCH (10:04)
[2021-05-17] MEDS: ASPIRIN 81MG CHEW TAB PO SCH (10:04)
[2021-05-17] MEDS: LISINOPRIL 20 MG TABLET PO SCH ×2 (10:04→21:02)
[2021-05-17] MEDS: KCL 20 MEQ ERTAB PO SCH ×2 (10:04→10:17)
[2021-05-17] MEDS: LEVOFLOXACIN 500 MG/D5W 100 ML IV SCH (10:05)
[2021-05-17] MEDS: FUROSEMIDE 40MG VIAL IV SCH (10:05)
[2021-05-17] MEDS: HYDROCHLOROTHIAZIDE 25 MG TABLET PO SCH (10:05)
[2021-05-17] MEDS: POLYETHYLENE GLYCOL 3350 17 GM POWD.PACK PO SCH (10:05)
[2021-05-17] MEDS: METFORMIN HCL 500 MG TAB.SR.24H PO SCH (10:06)
[2021-05-17 12:00] VITALS: BP 119/74
[2021-05-17 15:59] VITALS: BP 91/57
[2021-05-17 19:40] VITALS: BP 133/75
[2021-05-17] MEDS: ATORVASTATIN 40 MG TABLET PO SCH (21:02)
[2021-05-17] MEDS ORDERED: FURO40TA5 PO (21:35)
[2021-05-17] MEDS: FUROSEMIDE 40 MG TABLET PO SCH (23:04)
[2021-05-17] MEDS: MORPHINE 2 MG SYG IVP PRN (23:05)
[2021-05-18] VITALS: BP 118/77
[2021-05-18] MEDS: IPRATROPIUM/ALBUTEROL SULFATE 3 ML SOLUTION IH SCH ×5 (00:20→23:34)
[2021-05-18 04:00] VITALS: BP 114/63
[2021-05-18 05:08] LABS: HEMATOCRIT 36.3 % (42-54); MEAN CORPUSCULAR HEMOGLOBIN 31.6 pg (27.0-33.0); MEAN CORPUSCULAR HGB CONC 32.2 g/dL (32.0-36.0); MEAN CORPUSCULAR VOLUME 98.1 fL (79-99); RED BLOOD CELL COUNT(AUTO) 3.7 MIL/uL (4.50-6.20); RED CELL DISTRIBUTION WIDTH 15.1 % (11.0-15.5); WHITE BLOOD COUNT (AUTO) 12.3 K/uL (4.8-10.8)
[2021-05-18 05:30] LABS: ALBUMIN 2.2 g/dL (3.5-5.0); BILIRUBIN,TOTAL 0.7 mg/dL (0.2-1.0); CREATININE 1.3 mg/dL (0.5-1.5); POTASSIUM 3.5 mmol/L (3.5-5.1); TOTAL PROTEIN, SERUM 5.7 g/dL (6.0-8.3)
[2021-05-18] MEDS: ZOSYN 3.375GM +NS 50ML IV SCH ×3 (05:30→21:31)
[2021-05-18] MEDS: INSULIN HUMULIN R 100 UNIT/ML 3ML SQ SCH ×4 (05:44→20:53)
[2021-05-18 08:00] VITALS: BP 110/61
[2021-05-18] MEDS: APIXABAN 2.5 MG TABLET PO SCH ×2 (08:40→21:30)
[2021-05-18] MEDS: PANTOPRAZOLE 40 MG TAB DR PO SCH (08:42)
[2021-05-18] MEDS: AMIODARONE 200 MG TABLET PO SCH ×2 (08:42→21:31)
[2021-05-18] MEDS: HYDROCHLOROTHIAZIDE 25 MG TABLET PO SCH (08:43)
[2021-05-18] MEDS: AMLODIPINE 5 MG TAB PO SCH (08:43)
[2021-05-18] MEDS: FUROSEMIDE 40 MG TABLET PO SCH ×3 (08:44→21:00)
[2021-05-18] MEDS: TAMSULOSIN HCL 0.4 MG CAP.ER.24H PO SCH ×2 (08:45→21:30)
[2021-05-18] MEDS: KCL 20 MEQ ERTAB PO SCH ×3 (08:45→09:00)
[2021-05-18] MEDS: ASPIRIN 81MG CHEW TAB PO SCH (08:46)
[2021-05-18] MEDS: LEVOFLOXACIN 500 MG/D5W 100 ML IV SCH (08:46)
[2021-05-18] MEDS: METFORMIN HCL 500 MG TAB.SR.24H PO SCH (08:46)
[2021-05-18] MEDS: POLYETHYLENE GLYCOL 3350 17 GM POWD.PACK PO SCH (08:46)
[2021-05-18] MEDS: MORPHINE 2 MG SYG IVP PRN ×2 (08:47→18:13)
[2021-05-18] MEDS: ENOXAPARIN SODIUM 30 MG/0.3 ML SQ SCH (08:48)
[2021-05-18] MEDS: LISINOPRIL 20 MG TABLET PO SCH ×2 (09:00→21:31)
[2021-05-18] MEDS: CARVEDILOL 3.125 MG TABLET PO SCH ×2 (09:00→21:31)
[2021-05-18 10:12] LABS: CHLAMYDIA DNA N.A.AMPLIFY Negative (Negative)
[2021-05-18 12:00] VITALS: BP 109/66
[2021-05-18] MEDS ORDERED: LEVO500T89 PO (15:26)
[2021-05-18 16:00] VITALS: BP 97/52
[2021-05-18 19:51] VITALS: BP 141/73
[2021-05-18] MEDS: ATORVASTATIN 40 MG TABLET PO SCH (21:30)
[2021-05-19] VITALS (7 sets, daily range): BP systolic 97–136; BP diastolic 54–73
[2021-05-19] MEDS: ZOSYN 3.375GM +NS 50ML IV SCH ×3 (05:03→20:44)
[2021-05-19] MEDS: INSULIN HUMULIN R 100 UNIT/ML 3ML SQ SCH ×4 (06:39→20:45)
[2021-05-19] MEDS: IPRATROPIUM/ALBUTEROL SULFATE 3 ML SOLUTION IH SCH ×4 (07:05→23:14)
[2021-05-19] MEDS: LEVOFLOXACIN 500 MG/D5W 100 ML IV SCH (09:34)
[2021-05-19] MEDS: METFORMIN HCL 500 MG TAB.SR.24H PO SCH (09:34)
[2021-05-19] MEDS: CARVEDILOL 3.125 MG TABLET PO SCH ×2 (09:35→20:47)
[2021-05-19] MEDS: PREDNISONE 20 MG TABLET PO SCH (09:35)
[2021-05-19] MEDS: ASPIRIN 81MG CHEW TAB PO SCH (09:35)
[2021-05-19] MEDS: APIXABAN 2.5 MG TABLET PO SCH ×2 (09:36→20:46)
[2021-05-19] MEDS: KCL 20 MEQ ERTAB PO SCH ×2 (09:37→09:40)
[2021-05-19] MEDS: HYDROCHLOROTHIAZIDE 25 MG TABLET PO SCH (09:37)
[2021-05-19] MEDS: TAMSULOSIN HCL 0.4 MG CAP.ER.24H PO SCH ×2 (09:37→20:45)
[2021-05-19] MEDS: FUROSEMIDE 40 MG TABLET PO SCH ×2 (09:38→16:29)
[2021-05-19] MEDS: POLYETHYLENE GLYCOL 3350 17 GM POWD.PACK PO SCH (09:38)
[2021-05-19] MEDS: AMLODIPINE 5 MG TAB PO SCH (09:39)
[2021-05-19] MEDS: AMIODARONE 200 MG TABLET PO SCH (09:39)
[2021-05-19] MEDS: LISINOPRIL 20 MG TABLET PO SCH (09:40)
[2021-05-19] MEDS: PANTOPRAZOLE 40 MG TAB DR PO SCH (09:40)
[2021-05-19] MEDS: MORPHINE 2 MG SYG IVP PRN ×3 (09:41→21:15)
[2021-05-19] MEDS ORDERED: 0.9%NACL 50ML 50 ML IV ONE (13:08)
[2021-05-19] MEDS: KCL 20 MEQ ERTAB PO PRN (16:34)
[2021-05-19] MEDS: ATORVASTATIN 40 MG TABLET PO SCH (20:45)
[2021-05-20] MEDS: LISINOPRIL 20 MG TABLET PO SCH ×2 (00:01→08:53)
[2021-05-20 03:59] VITALS: BP 98/51
[2021-05-20] MEDS: ZOSYN 3.375GM +NS 50ML IV SCH ×2 (04:37→12:30)
[2021-05-20] MEDS: INSULIN HUMULIN R 100 UNIT/ML 3ML SQ SCH ×3 (06:21→16:30)
[2021-05-20] MEDS: IPRATROPIUM/ALBUTEROL SULFATE 3 ML SOLUTION IH SCH ×3 (06:34→11:08)
[2021-05-20 08:02] LABS: CREATININE 1.3 mg/dL (0.5-1.5); POTASSIUM 3.7 mmol/L (3.5-5.1)
[2021-05-20 08:19] VITALS: BP 132/77
[2021-05-20] MEDS: METFORMIN HCL 500 MG TAB.SR.24H PO SCH (08:48)
[2021-05-20] MEDS: LEVOFLOXACIN 500 MG/D5W 100 ML IV SCH (08:48)
[2021-05-20] MEDS: CARVEDILOL 3.125 MG TABLET PO SCH (08:49)
[2021-05-20] MEDS: ASPIRIN 81MG CHEW TAB PO SCH (08:49)
[2021-05-20] MEDS: PREDNISONE 20 MG TABLET PO SCH (08:49)
[2021-05-20] MEDS: KCL 20 MEQ ERTAB PO SCH ×2 (08:50→08:51)
[2021-05-20] MEDS: TAMSULOSIN HCL 0.4 MG CAP.ER.24H PO SCH (08:50)
[2021-05-20] MEDS: APIXABAN 2.5 MG TABLET PO SCH (08:50)
[2021-05-20] MEDS: HYDROCHLOROTHIAZIDE 25 MG TABLET PO SCH (08:50)
[2021-05-20] MEDS: FUROSEMIDE 40 MG TABLET PO SCH ×2 (08:51→17:00)
[2021-05-20] MEDS: POLYETHYLENE GLYCOL 3350 17 GM POWD.PACK PO SCH (08:51)
[2021-05-20] MEDS: AMLODIPINE 5 MG TAB PO SCH (08:53)
[2021-05-20] MEDS: AMIODARONE 200 MG TABLET PO SCH ×2 (08:53)
[2021-05-20] MEDS: PANTOPRAZOLE 40 MG TAB DR PO SCH (08:54)
[2021-05-20 11:52] VITALS: BP 107/72
[2021-05-20 16:06] VITALS: BP 108/59
== END 2021-05-20 18:39 | disposition home or self-care (01) | DRG 917 ==
LOC: EDH 08:50 → EDHIP 20:10 → 4CH 05-15 14:41
PROVIDERS: ADMIT Internal Medicine; ATTEND Internal Medicine
DX: T40.5X1A Poisoning by cocaine, accidental (unintentional), initial encounter (principal); J96.01 Acute respiratory failure with hypoxia; I50.23 Acute on chronic systolic (congestive) heart failure; I48.20 Chronic atrial fibrillation, unspecified; I42.9 Cardiomyopathy, unspecified; I11.0 Hypertensive heart disease with heart failure; J70.2 Acute drug-induced interstitial lung disorders; J44.9 Chronic obstructive pulmonary disease, unspecified; E11.9 Type 2 diabetes mellitus without complications; E78.5 Hyperlipidemia, unspecified; E78.00 Pure hypercholesterolemia, unspecified; E87.6 Hypokalemia; F14.90 Cocaine use, unspecified, uncomplicated; N48.29 Other inflammatory disorders of penis; E87.70 Fluid overload, unspecified; Z20.822 Contact with and (suspected) exposure to COVID-19; E66.9 Obesity, unspecified; Z68.36 Body mass index [BMI] 36.0-36.9, adult; Z79.84 Long term (current) use of oral hypoglycemic drugs; Z79.01 Long term (current) use of anticoagulants; Z79.899 Other long term (current) drug therapy; Z95.810 Presence of automatic (implantable) cardiac defibrillator; Y92.89 Other specified places as the place of occurrence of the external cause
CPT/HCPCS: 36415; 36600; 70450; 71045; 71275; 72125; 80048; 80053; 80305; 81001; 82550; 82803; 82948; 83036; 83605; 83735; 83874; 83880; 84100; 84145; 84443; 84484; 85025; 85027; 85378; 85610; 85730; 87070; 87077; 87088; 87186; 87486; 87635; 87797; 87804; 93005; 93306; 93356; 94640; 94664; 94667; 94668; 94760; 97039; C9803; G0378; J0456; J0696; J1650; J1815; J1940; J1956; J2543; J2930; J3475; J7608; Q9967

== ENCOUNTER 2021-05-24 11:56 | Emergency (ER) | payer MEDICARE ==
[~2021-05-24] VITALS: Ht 170.2 cm; Wt 113.4 kg
[~2021-05-24 11:56] MED LIST changes: +AMIO200T6 PO; +AMLO-258 PO; -ASPI-891 PO; -ATOR10 PO; +ATOR40TA71 PO; -CARV12.580 PO; +CARV3.12 PO; +DOXY100C5 PO; -DOXY100T2 PO; -FURO20TA4 PO; +FURO40TA5 PO; +HYDR25TA PO; +LEVO500T89 PO; -LISI1TAB51 PO; +LISI20TA24 PO; +METF-446 PO; +POTA-79 PO; +PRED20TA3 PO; -TYL3 PO
[2021-05-24 12:13] VITALS: BP 103/60
[2021-05-24 12:30] LABS: BASOPHILS % (AUTO) 0.6 % (0.0-5.0); EOSINOPHILS % (AUTO) 0.4 % (0.0-8.0); HEMATOCRIT 40.4 % (42-54); LYMPHOCYTES % (AUTO) 10.8 % (21.0-51.0); MEAN CORPUSCULAR HEMOGLOBIN 32.3 pg (27.0-33.0); MEAN CORPUSCULAR HGB CONC 32.9 g/dL (32.0-36.0); MEAN CORPUSCULAR VOLUME 98.1 fL (79-99); MONOCYTES % (AUTO) 2.7 % (3.0-13.0); NEUTROPHILS % (AUTO) 85.1 % (40.0-77.0); PLATELET COUNT (AUTO) 438 K/uL (130-400); RED BLOOD CELL COUNT(AUTO) 4.12 MIL/uL (4.50-6.20); RED CELL DISTRIBUTION WIDTH 14.6 % (11.0-15.5); WHITE BLOOD COUNT (AUTO) 9.5 K/uL (4.8-10.8)
[2021-05-24 12:42] LABS: INR 1.05 (0.85-1.15); PROTHROMBIN TIME 11.4 SEC (9.6-11.6)
[2021-05-24 12:47] LABS: B-TYPE NATRIURETIC PEPTIDE 209 pg/mL (0-100)
[2021-05-24 12:48] LABS: CREATININE 1.5 mg/dL (0.5-1.5)
[2021-05-24 12:52] LABS: ALBUMIN 2.8 g/dL (3.5-5.0); BILIRUBIN,TOTAL 0.7 mg/dL (0.2-1.0); TOTAL PROTEIN, SERUM 6.9 g/dL (6.0-8.3)
[2021-05-24 13:29] VITALS: BP 124/70
[2021-05-24] MEDS ORDERED: FUROSEMIDE 40MG VIAL IV ONE (13:30)
[2021-05-24] MEDS ORDERED: MORPHINE 4 MG SYG IV ONE (13:30)
[2021-05-24 15:28] VITALS: BP 129/69
== END 2021-05-24 18:02 | disposition home or self-care (01) ==
LOC: EDH 11:56
DX: I11.0 Hypertensive heart disease with heart failure (principal); I50.9 Heart failure, unspecified; R07.89 Other chest pain; I48.91 Unspecified atrial fibrillation; E11.9 Type 2 diabetes mellitus without complications; E78.00 Pure hypercholesterolemia, unspecified; Z79.899 Other long term (current) drug therapy; Z79.84 Long term (current) use of oral hypoglycemic drugs; Z79.01 Long term (current) use of anticoagulants; Z79.82 Long term (current) use of aspirin
CPT/HCPCS: 36415; 71045; 80053; 82550; 83880; 84484; 85025; 85610; 85730; 93005

== ENCOUNTER 2021-09-18 15:20 | Emergency (ER) | payer MEDICARE ==
[~2021-09-18] VITALS: Ht 177.8 cm; Wt 108.9 kg
[~2021-09-18 15:20] MED LIST changes: -AMIO200T6 PO; +AMIO200T68 PO; -LEVO500T89 PO; +LEVO500T90 PO
[2021-09-18 17:59] VITALS: BP 112/75
[2021-09-18] MEDS ORDERED: CLINDAMYCIN 150 MG CAP ONE (18:54)
[2021-09-18] MEDS ORDERED: CLIN-141 PO (19:02)
[2021-09-18] MEDS ORDERED: CLINDAMYCIN 150 MG CAP PO ONE (20:00)
== END 2021-09-18 19:08 | disposition home or self-care (01) ==
LOC: EDH 15:20
DX: S91.301A Unspecified open wound, right foot, initial encounter (principal); E11.9 Type 2 diabetes mellitus without complications; E78.00 Pure hypercholesterolemia, unspecified; I10 Essential (primary) hypertension; Z79.01 Long term (current) use of anticoagulants; Z79.52 Long term (current) use of systemic steroids; Z79.84 Long term (current) use of oral hypoglycemic drugs; Z79.899 Other long term (current) drug therapy; X58.XXXA Exposure to other specified factors, initial encounter; Y93.89 Activity, other specified; Y92.89 Other specified places as the place of occurrence of the external cause; Y99.8 Other external cause status
CPT/HCPCS: 82948